=== PATIENT | male | born 1955 | race Hispanic/Latino ===

== ENCOUNTER 2020-05-30 18:52 | Emergency (ER) | payer BC, OTHER ==
[2020-05-30] MEDS ORDERED: FLUORESCEIN SODIUM 1 MG/WRAP ONE (21:37)
[2020-05-30] MEDS ORDERED: TETRACAINE HCL 0.5% 4ML OPTH ONE (21:37)
[2020-05-30] MEDS ORDERED: NEO/BAC/POLY/HC OPTH OINT ONE (21:55)
[2020-05-30] MEDS ORDERED: GENTAMICIN 0.3% OPTH DROP 5ML ONE (21:55)
--- NOTE | 2020-05-30 22:44 | EDPHYS ---
Physician Documentation [facility] Name: Quan Taylor Age: 64 yrs Sex: Male : 1955 Arrival Date: 05/30/2020 Time: 18:59 Bed 24 Private MD: ED Physician Shaggy Smith HPI: 05/30 22:48 This 64 yrs old Male presents to ER via Ambulatory with complaints of Eye snw Problem. 22:48 The patient sustained an abrasion, foreign body, to the right eye, caused by an unknown snw mechanism. Onset: The symptoms/episode began/occurred suddenly, at 15:00. Duration: the symptoms are continuous. Aggravated by rubbing. Associated signs and symptoms: Pertinent positives: tearing. Severity of symptoms: At their worst the symptoms were mild. The patient has not experienced similar symptoms in the past. It is unknown whether or not the patient has recently seen a physician. Historical: - Allergies: 19:08 No Known Allergies; jb4 - Home Meds: 19:08 Lipitor 10 mg Oral tab 1 tab once daily [Active]; jb4 - PMHx: 19:08 High Cholesterol; jb4 - PSHx: 19:08 Lense replacement ZIAYD eyes; jb4 - Immunization history:: Adult Immunizations up to date. - Social history:: Smoking status: Patient denies any tobacco usage or history of. Patient/guardian denies using alcohol, street drugs. ROS: 22:47 Constitutional: Negative for fever, chills, and weight loss, ENT: Negative for injury, snw pain, and discharge, Neck: Negative for injury, pain, and swelling, Cardiovascular: Negative for chest pain, palpitations, and edema, Respiratory: Negative for shortness of breath, cough, wheezing, and pleuritic chest pain, Abdomen/GI: Negative for abdominal pain, nausea, vomiting, diarrhea, and constipation, Back: Negative for injury and pain, : Negative for injury, bleeding, discharge, and swelling, MS/Extremity: Negative for injury and deformity, Skin: Negative for injury, rash, and discoloration, Neuro: Negative for headache, weakness, numbness, tingling, and seizure, Psych: Negative for depression, anxiety, suicide ideation, homicidal ideation, and hallucinations. 22:47 Eyes: Positive for tearing, "they said they saw something in my right eye" after pt was working with metal outdoors. Exam: 22:45 Constitutional: This is a well developed, well nourished patient who is awake, alert, snw and in no acute distress. Head/Face: Normocephalic, atraumatic. Eyes: Pupils equal round and reactive to light, extra-ocular motions intact. Lens replacement Lids and lashes normal. Conjunctiva and sclera are non-icteric and right conjuctiva is injected. Unable to see foreign body or fluorscein uptake. Cornea within normal limits. Periorbital areas with no swelling, redness, or edema. ENT: Nares patent. No nasal discharge, no septal abnormalities noted. Tympanic membranes are normal and external auditory canals are clear. Oropharynx with no redness, swelling, or masses, exudates, or evidence of obstruction, uvula midline. Mucous membranes moist. Neck: Trachea midline, no thyromegaly or masses palpated, and no cervical lymphadenopathy. Supple, full range of motion without nuchal rigidity, or vertebral point tenderness. No Meningismus. Chest/axilla: Normal chest wall appearance and motion. Nontender with no deformity. No lesions are appreciated. Cardiovascular: Regular rate and rhythm with a normal S1 and S2. No gallops, murmurs, or rubs. Normal PMI, no JVD. No pulse deficits. Respiratory: Lungs have equal breath sounds bilaterally, clear to auscultation and percussion. No rales, rhonchi or wheezes noted. No increased work of breathing, no retractions or nasal flaring. Abdomen/GI: Soft, non-tender, with normal bowel sounds. No distension or tympany. No guarding or rebound. No evidence of tenderness throughout. Back: No spinal tenderness. No costovertebral tenderness. Full range of motion. Skin: Warm, dry with normal turgor. Normal color with no rashes, no lesions, and no evidence of cellulitis. MS/ Extremity: Pulses equal, no cyanosis. Neurovascular intact. Full, normal range of motion. Neuro: Awake and alert, GCS 15, oriented to person, place, time, and situation. Cranial nerves II-XII grossly intact. Motor strength 5/5 in all extremities. Sensory grossly intact. Cerebellar exam normal. Normal gait. Psych: Awake, alert, with orientation to person, place and time. Behavior, mood, and affect are within normal limits. Vital Signs: 19:05 BP 122 / 91; Pulse 87; Resp 16; Temp 99.0(TE); Pulse Ox 98% on R/A; Weight 99.79 kg jb4 (R); Height 6 ft. 0 in. (182.88 cm) (R); Pain 0/10; 19:05 Body Mass Index 29.84 (99.79 kg, 182.88 cm) jb4 Visual Acuity: 21:36 Left Eye Visual acuity 20/30, Pupil size 3 mm, Normal, React To Light; Right Eye Visual sg acuity 20/40, Pupil size 3 mm, Normal, React To Light; Both Eyes Visual acuity 20/30; Without Lenses; pt reports normally uses eye drops for vision, has not used them today prior to eye chart test MDM: 22:42 Patient medically screened. snw 22:47 Data reviewed: vital signs, nurses notes. Data interpreted: Pulse oximetry: is not snw applicable for this patient encounter. 05/30 21:32 Order name: Visual Acuity; Complete Time: 21:32 snw 05/30 21:32 Order name: Eye Tray; Complete Time: 21:32 snw 05/30 21:32 Order name: Fluoresene Opth strip; Complete Time: 21:32 snw Administered Medications: 21:32 Drug: Tetracaine Drops 0.5 % 1 drops Route: Ophthalmic; Site: both eyes; sg 22:40 Drug: Iguexehr-Zdljafnnup-Xlutwphcw 0.5 inches Route: Ophthalmic; Site: right eye; sg 22:53 Not Given (Other Intervention Used): ERYTHromycin Ointment 1 application Ophthalmic oncesg Disposition: 05/31 05:59 Co-signature as Attending Physician, Shaggy Smith MD. pkl Disposition: 05/30/20 22:42 Discharged to Home. Impression: Conjunctivitis. - Condition is Stable. - Discharge Instructions: Eye Foreign Body, Viral Conjunctivitis, Hand Washing. - Work release form, Medication Reconciliation Form, Thank You Letter, Antibiotic Education, Prescription Opioid Use form. - Follow up: Mary Scott MD; When: 1 - 2 days; Reason: Recheck today's complaints, Continuance of care. - Notes: Please use ointment, 1/2 inch ribbon, three times dailyfor one week Signatures: Pedro Luis Burciaga RN RN sg Shaggy Smith MD MD pkl Khloe Marsh, ESTATE ATTORNEY-C ESTATE ATTORNEY-Csnw Jarrett Jerry, RN RN jb4 Corrections: (The following items were deleted from the chart) 05/30 22:53 22:42 05/30/2020 22:42 Discharged to Home. Impression: Conjunctivitis. Condition is sg Stable. Forms are Medication Reconciliation Form, Thank You Letter, Antibiotic Education, Prescription Opioid Use. Follow up: Mary Scott; When: 1 - 2 days; Reason: Recheck today's complaints, Continuance of care. snw
--- NOTE | 2020-05-30 22:44 | ER ---
Nurse's Notes [facility] Name: Quan Taylor Age: 64 yrs Sex: Male : 1955 Arrival Date: 05/30/2020 Time: 18:59 Bed 24 Private MD: Diagnosis: Conjunctivitis Presentation: 05/30 19:05 Chief complaint: Patient states: I was working on a building and we were screwing into jb4 metal. I feel like I got some of the shavings in my right eye. It happened at 3 pm. Coronavirus screen: Client denies travel out of the [place] in the last 14 days. At this time, the client does not indicate any symptoms associated with coronavirus-19. Ebola Screen: No symptoms or risks identified at this time. Initial Sepsis Screen: Does the patient meet any 2 criteria? No. Patient's initial sepsis screen is negative. Does the patient have a suspected source of infection? No. Patient's initial sepsis screen is negative. Risk Assessment: Do you want to hurt yourself or someone else? Patient reports no desire to harm self or others. Onset of symptoms was May 30, 2020. Transition of care: patient was not received from another setting of care. 19:05 Method Of Arrival: Ambulatory 4 19:05 Acuity: LILLI 2 jb4 Historical: - Allergies: 19:08 No Known Allergies; jb4 - Home Meds: 19:08 Lipitor 10 mg Oral tab 1 tab once daily [Active]; jb4 - PMHx: 19:08 High Cholesterol; jb4 - PSHx: 19:08 Lense replacement ZIYAD eyes; jb4 - Immunization history:: Adult Immunizations up to date. - Social history:: Smoking status: Patient denies any tobacco usage or history of. Patient/guardian denies using alcohol, street drugs. Screenin:30 Abuse screen: Denies threats or abuse. Denies injuries from another. Nutritional sg screening: No deficits noted. Tuberculosis screening: Never had TB. Fall Risk None identified. Assessment: 22:40 General: Appears in no apparent distress. well groomed, well developed, well nourished, sg Behavior is calm, cooperative, appropriate for age. Pain: Complains of pain in right eye Quality of pain is described as aching. Neuro: Level of Consciousness is awake, alert, obeys commands, Speech is normal, Facial symmetry appears normal. Cardiovascular: Capillary refill is brisk in bilateral fingers Patient's skin is warm and dry. Chest pain is denied. Respiratory: Airway is patent Respiratory effort is even, unlabored, Respiratory pattern is regular, symmetrical. GI: No signs and/or symptoms were reported involving the gastrointestinal system. : No signs and/or symptoms were reported regarding the genitourinary system. EENT: Eyes are tearing on right eye Sclera/Cornea are reddened in right eye Nares are clear bilaterally Oral mucosa is moist. Throat is clear. Derm: Skin is pink, warm \T\ dry. Musculoskeletal: Circulation, motion, and sensation intact. Range of motion: intact in all extremities. Vital Signs: 19:05 BP 122 / 91; Pulse 87; Resp 16; Temp 99.0(TE); Pulse Ox 98% on R/A; Weight 99.79 kg jb4 (R); Height 6 ft. 0 in. (182.88 cm) (R); Pain 0/10; 19:05 Body Mass Index 29.84 (99.79 kg, 182.88 cm) jb4 Visual Acuity: 21:36 Left Eye Visual acuity 20/30, Pupil size 3 mm, Normal, React To Light; Right Eye Visual sg acuity 20/40, Pupil size 3 mm, Normal, React To Light; Both Eyes Visual acuity 20/30; Without Lenses; pt reports normally uses eye drops for vision, has not used them today prior to eye chart test ED Course: 18:59 Patient arrived in ED. mr 19:07 Triage completed. jb4 19:08 Arm band placed on left wrist. jb4 21:23 Pedro Luis Burciaga, CANDICE is Primary Nurse. 21:31 Khloe Marsh FNP-C is PHCP. snw 21:31 Shaggy Smith MD is Attending Physician. snw 22:20 Patient has correct armband on for positive identification. Bed in low position. Call sg light in reach. Pulse ox on. NIBP on. Head of bed elevated. 22:42 Mary Scott MD is Referral Physician. snw 22:50 Assist provider with eye exam of right eye. using fluorescein stain, Performed by elmo HAY Patient tolerated well. Patient did not have IV access during this emergency room visit. Administered Medications: 21:32 Drug: Tetracaine Drops 0.5 % 1 drops Route: Ophthalmic; Site: both eyes; sg 22:40 Drug: Dueejmtd-Atncooiyki-Qnwkqspzj 0.5 inches Route: Ophthalmic; Site: right eye; sg 22:53 Not Given (Other Intervention Used): ERYTHromycin Ointment 1 application Ophthalmic oncesg Outcome: 22:42 Discharge ordered by . sary 22:50 Discharged to home ambulatory. sg 22:50 Condition: good 22:50 Discharge instructions given to patient, Instructed on discharge instructions, follow up and referral plans. medication usage, safety practices, Demonstrated understanding of instructions, follow-up care, medications, Prescriptions given X 1. 22:53 Patient left the ED. sg Signatures: Pedro Luis Burciaga RN RN Khloe Morel, SATNAM CAZARESP-Keshia Wilkerson James RN RN jb4 Corrections: (The following items were deleted from the chart) 19:51 19:05 Acuity: LILLI 3 jb4 jb4 05/31 01:51 09 22:50 No provider procedures requiring assistance completed. sg sg
== END 2020-05-30 22:53 | disposition home or self-care (01) ==
LOC: ER 18:52
DX: H10.9 Unspecified conjunctivitis (principal); E78.00 Pure hypercholesterolemia, unspecified
CPT/HCPCS: 99284